=== PATIENT | female | born 1985 | race Caucasian/White ===

== ENCOUNTER 2017-02-18 08:48 | Emergency (ER) | payer MEDICAID ==
[~2017-02-18] VITALS: Ht 157.5 cm; Wt 50.0 kg
[2017-02-18 08:53] VITALS: BP 153/77; PULSE 75; RESP 12; TEMP 98.7; O2SAT 96
[2017-02-18] MEDS ORDERED: SODIUM CHLOR 0.9% 1000 ML INJ 1,000 ML IV SCH (09:26)
[2017-02-18] MEDS ORDERED: diphenhydrAMINE HCL 50 MG/ML VIAL IV PUSH ONE (09:30)
[2017-02-18] MEDS ORDERED: KETOROLAC TROMETHAMINE 30 MG/ML (IVP) VIAL IVP ONE (09:30)
[2017-02-18] MEDS ORDERED: FAMOTIDINE 20 MG/2 ML VIAL IV PUSH ONE (09:30)
[2017-02-18] MEDS ORDERED: SODIUM CHLORIDE 0.9% FLUSH 10 ML FLUSH IV FLUSH PRN (09:30)
[2017-02-18] MEDS ORDERED: METOCLOPRAMIDE HCL 10 MG/2 ML VIAL IV PUSH ONE (09:30)
--- NOTE | 2017-02-18 09:34 | PD ---
HPI Chief Complaint: GI Complaint Time Seen by Provider: 09:18 Travel History International Travel<30 days: No Contact w/Intl Traveler<30days: No Traveled to known affect area: No History of Present Illness HPI 31-year-old female complains of abdominal pain with nausea vomiting. Patient has history of recurrent abdominal pain with nausea vomiting for years. Patient has been seen and admitted multiple times in the past at [facility] in [facility]. Patient states that she has x-ray, CT scan of abdomen and pelvis, endoscopy by GI specialist done at [facility]. Patient states that she was told that she had possible Crohn's disease, irritable bowel syndrome, diverticulitis. Patient states that she was given Ativan and Phenergan in the past. Patient states she has symptoms intermittently for years. Patient states that she started having abdominal pain with nausea vomiting again this morning. Patient denies any headache. Patient denies any chest pain or shortness of breath. Patient states the abdominal pain cramping pain diffuse pain over the abdomen. Patient denies any pain radiation. Patient denied dysuria or frequency. Patient is on her menstruation period now. 11:10 AM. Medical records obtained from [facility] in [facility] she'll patient was admitted on January 22 and discharged January 24 for intractable abdominal pain nausea vomiting. History of the admission also states the patient had endoscopy in July of [facility] which showed esophagitis. Patient had colonoscopy in September 2015 showed mild diverticulosis and hemorrhoids. has history of asthma, anxiety, diverticulosis, cyclic vomiting syndrome. Medical records did not have any report the patient had Crohn's disease or diverticulitis on endoscopy. Patient states that she has been smoking pot at home also. PFSH Past Medical History Anxiety: Yes Medical other: Yes (CROHNS) Respiratory: Yes (PE 2012) Tetanus Vaccination: Unknown Influenza Vaccination: Yes ?: Not Tubal Ligation: Yes Past Surgical History Cholecystectomy: Yes Tonsillectomy: Yes Social History Alcohol Use: No Tobacco Use: Yes Substance Use: Yes (THC DAILY) Allergies-Medications (Allergen,Severity, Reaction): Coded Allergies: ondansetron (Verified Allergy, Intermediate, Hives, 02/18/17) vancomycin (Verified Allergy, Intermediate, Rash, 02/18/17) PT STATES SHE TURNS RED AND SWELLS Reported Meds & Prescriptions Reported Meds & Active Scripts Active Zantac (Ranitidine HCl) 300 Mg Tab 300 Mg PO DAILY Phenergan (Promethazine HCl) 25 Mg Tablet 25 Mg PO Q6H PRN Reglan (Metoclopramide HCl) 10 Mg Tab 10 Mg PO TIDAC Review of Systems General / Constitutional: No: Fever Eyes: No: Visual changes HENT: No: Headaches Cardiovascular: No: Chest Pain or Discomfort Respiratory: No: Shortness of Breath Gastrointestinal: Positive: Nausea, Vomiting, Abdominal Pain Genitourinary: No: Dysuria Musculoskeletal: No: Pain Skin: No Rash Neurologic: No: Weakness Psychiatric: No: Depression Endocrine: No: Polydipsia Hematologic/Lymphatic: No: Easy Bruising Physical Exam Narrative GENERAL: Well-nourished, well-developed patient. SKIN: Focused skin assessment warm/dry. HEAD: Normocephalic. EYES: No scleral icterus. No injection or drainage. NECK: Supple, trachea midline. No JVD or lymphadenopathy. CARDIOVASCULAR: Regular rate and rhythm without murmurs, gallops, or rubs. RESPIRATORY: Breath sounds equal bilaterally. No accessory muscle use. GASTROINTESTINAL: Abdomen soft, nondistended. Patient has moderate diffuse tenderness over the abdomen. No rebound tenderness. No mass. MUSCULOSKELETAL: No cyanosis, or edema. BACK: Nontender without obvious deformity. No CVA tenderness. Data Data Last Documented VS Vital Signs Date Time Temp Pulse Resp B/P (MAP) Pulse Ox O2 Delivery O2 Flow Rate FiO2 02/18/17 08:53 98.7 75 12 153/77 (102) 96 Orders Orders Complete Blood Count With Diff (02/18/17 09:26) Comprehensive Metabolic Panel (02/18/17 09:26) Lipase (02/18/17:26) Prothrombin Time / Inr (Pt) (02/18/17:26) Act Partial Throm Time (Ptt) (02/18/17:26) Urinalysis - C+S If Indicated (02/18/17 09:26) Ct Abd/Pel W/O Iv Contrast (02/18/17 09:26) Iv Access Insert/Monitor (02/18/17:26) Ecg Monitoring (02/18/17:) Oximetry (02/18/17 09:26) Sodium Chlor 0.9% 1000 Ml Inj (Ns 1000 M (02/18/17 09:26) Sodium Chloride 0.9% Flush (Ns Flush) (02/18/17 09:30) Famotidine Inj (Pepcid Inj) (02/18/17 09:30) Ketorolac Inj (Toradol Inj) (02/18/17 09:30) Ed Urine Pregnancytest Poc (02/18/17 09:26) Metoclopramide Inj (Reglan Inj) (02/18/17 09:30) Diphenhydramine Inj (Benadryl Inj) (02/18/17 09:30) Urine Culture (02/18/17 09:20) Labs Laboratory Tests Test 02/18/17 09:20 02/18/17 09:30 Urine Color YELLOW Urine Turbidity HAZY Urine pH 5.0 Urine Specific [place] 1.021 Urine Protein TRACE mg/dL Urine Glucose (UA) NEG mg/dL Urine Ketones 40 mg/dL Urine Occult Blood LARGE Urine Nitrite NEG Urine Bilirubin NEG Urine Urobilinogen LESS THAN 2.0 MG/DL Urine Leukocyte Esterase NEG Urine RBC 46 /hpf Urine WBC 6 /hpf Urine Squamous Epithelial Cells 2 /hpf Urine Bacteria MOD /hpf Urine Mucus FEW /lpf Microscopic Urinalysis Comment CULTURE INDICATED White Blood Count 12.5 TH/MM3 Red Blood Count 4.63 MIL/MM3 Hemoglobin 15.3 GM/DL Hematocrit 45.1 % Mean Corpuscular Volume 97.4 FL Mean Corpuscular Hemoglobin 33.0 PG Mean Corpuscular Hemoglobin Concent 33.9 % Red Cell Distribution Width 13.7 % Platelet Count 275 TH/MM3 Mean Platelet Volume 7.9 FL Neutrophils (%) (Auto) 79.4 % Lymphocytes (%) (Auto) 15.2 % Monocytes (%) (Auto) 3.8 % Eosinophils (%) (Auto) 1.2 % Basophils (%) (Auto) 0.4 % Neutrophils # (Auto) 10.0 TH/MM3 Lymphocytes # (Auto) 1.9 TH/MM3 Monocytes # (Auto) 0.5 TH/MM3 Eosinophils # (Auto) 0.1 TH/MM3 Basophils # (Auto) 0.1 TH/MM3 CBC Comment DIFF FINAL Differential Comment Prothrombin Time 10.9 SEC Prothromb Time International Ratio 1.0 RATIO Activated Partial Thromboplast Time 20.7 SEC Blood Urea Nitrogen 15 MG/DL Creatinine 0.62 MG/DL Random Glucose 152 MG/DL Total Protein 7.5 GM/DL Albumin 4.1 GM/DL Calcium Level 8.8 MG/DL Alkaline Phosphatase 51 U/L Aspartate Amino Transf (AST/SGOT) 13 U/L Alanine Aminotransferase (ALT/SGPT) 25 U/L Total Bilirubin 0.2 MG/DL Sodium Level 138 MEQ/L Potassium Level 3.9 MEQ/L Chloride Level 109 MEQ/L Carbon Dioxide Level 22.2 MEQ/L Anion Gap 7 MEQ/L Estimat Glomerular Filtration Rate 111 ML/MIN Lipase 180 U/L [facility] Medical Decision Making Medical Screen Exam Complete: Yes Emergency Medical Condition: Yes Interpretation(s) 10:23 AM. CBC WBC 12.5. 79 neutrophil. CMP within normal limit. UA positive for RBC, few WBC and bacteria. 11:[address] scan abdomen and pelvis negative for acute pathology. Differential Diagnosis Differential diagnosis including gastritis, PUD, pancreatitis, cholecystitis, colitis, UTI, pyelonephritis, nephrolithiasis. Narrative Course 31-year-old female with recurrent abdominal pain nausea vomiting. Normal saline solution 1 L IV bolus. Reglan 10 mg IV. Benadryl 25 mg IV. Toradol 30 mg IV. I discussed the results of blood tests and CT scan abdomen and pelvis and report from [facility] with the patient. Advised patient to follow- up local physician and GI specialist. Advised patient stop smoking pot. Diagnosis Primary Impression: Recurrent abdominal pain Additional Impression: Nausea and vomiting Qualified Codes: G43.A0 - Cyclical vomiting, not intractable Patient Instructions: General Instructions Additional Instructions: Take Reglan, Phenergan, Zantac as needed. Follow-up with GI specialist. Return if persistent problem or worse. Advised patient to stop smoking pot. Med/Other Pt SpecificInfo: Prescription(s) given Scripts Ranitidine (Zantac) 300 Mg Tab 300 MG PO DAILY, #30 TAB 0 Refills Prov: Robby Benz MD 02/18/17 Promethazine (Phenergan) 25 Mg Tablet 25 MG PO Q6H Y for NAUSEA OR VOMITING, #20 TAB 0 Refills Prov: Robby Benz MD 02/18/17 Metoclopramide (Reglan) 10 Mg Tab 10 MG PO TIDAC, #30 TAB 0 Refills Prov: Robby Benz MD 02/18/17 Disposition: 01 DISCHARGE HOME Condition: Stable Robby Benz MD Feb 18, 2017 09:34
[2017-02-18 09:58] LABS: BASOPHIL # 0.1 TH/MM3 (0-0.2); BASOPHIL % 0.4 % (0.0-2.0); EOSINOPHIL # 0.1 TH/MM3 (0-0.4); EOSINOPHIL % 1.2 % (0.0-4.0); HEMATOCRIT 45.1 % (35.0-46.0); HEMO FLAGS DIFF FINAL; LYMPH % 15.2 % (9.0-44.0); LYMPHOCYTE # 1.9 TH/MM3 (1.0-4.8); MEAN CELL VOLUME 97.4 FL (80.0-100.0); MEAN CORPUSCULAR HGB CONC 33.9 % (32.0-36.0); MONO % 3.8 % (0.0-8.0); NEUT % 79.4 % (16.0-70.0); PLATELET COUNT 275 TH/MM3 (150-450); RED BLOOD COUNT 4.63 MIL/MM3 (4.00-5.30); RED CELL DISTRIBUTION WIDTH 13.7 % (11.6-17.2); WHITE BLOOD COUNT 12.5 TH/MM3 (4.0-11.0)
[2017-02-18 10:13] LABS: APTT (PATIENT) 20.7 SEC (24.3-30.1); PROTHROMBIN TIME - PATIENT 10.9 SEC (9.8-11.6)
[2017-02-18 10:17] LABS: ALT (GPT) 25 U/L (10-53); ANION GAP 7 MEQ/L (5-15); AST (GOT) 13 U/L (15-37); BICARBONATE 22.2 MEQ/L (21.0-32.0); BLOOD UREA NITROGEN 15 MG/DL (7-18); CHLORIDE 109 MEQ/L (98-107); GLOMERULAR FILTRATION RATE 111 ML/MIN (>89); POTASSIUM 3.9 MEQ/L (3.5-5.1); SODIUM (NA) 138 MEQ/L (136-145)
[2017-02-18 10:17] LABS: BACTERIA, URINE MOD /hpf; BLOOD, URINE LARGE (NEG); COMMENT (UR) CULTURE INDICATED; CULTURE IF INDICATED CULTURE INDICATED; GLUCOSE,URINE NEG (NEG); KETONE, URINE 40 mg/dL (NEG); MUCUS URINE FEW /lpf (OCC); NITRITE,URINE NEG (NEG); SQUAMOUS EPITHELIAL CELL URINE 2 /hpf (0-5); URINE COLOR YELLOW (YELLW/STRAW)
[2017-02-18 10:19] LABS: ALKALINE PHOSPHATASE 51 U/L (45-117); TOTAL BILIRUBIN ADULT 0.2 MG/DL (0.2-1.0)
--- NOTE | 2017-02-18 11:33 | RADRPT ---
EXAM DATE/TIME: 02/18/2017 10:59 [place] COMPARISON: No previous studies available for comparison. INDICATIONS : Nausea and vomiting and diffuse abdomen pain ORAL CONTRAST: No oral contrast ingested. RADIATION DOSE: 4.54 CTDIvol (mGy) MEDICAL HISTORY : None SURGICAL HISTORY : Cholecystectomy. Tubal ligation. ENCOUNTER: Initial ACUITY: 1 week PAIN SCALE: 5/10 LOCATION: diffuse abdomen TECHNIQUE: Volumetric scanning of the abdomen and pelvis was performed. Using automated exposure control and ad justment of the mA and/or kV according to patient size, radiation dose was kept as low as reasonably achievable to obtain optimal diagnostic quality images. DICOM format image data is available electro nically for review and comparison. FINDINGS: LOWER LUNGS: The visualized lower lungs are clear. LIVER: Homogeneous density without lesion. There is no dilation of the biliary tree. Gallbladder is surgica lly absent. SPLEEN: Normal size without lesion. PANCREAS: Within normal limits. KIDNEYS: Normal in size and shape. There is no mass, stone, or hydronephrosis. ADRENAL GLANDS: Within normal limits. VASCULAR: There is no aortic aneurysm. BOWEL/MESENTERY: The stomach, small bowel, and colon demonstrate no acute abnormality. Appendix is not directly visua lized. However, there is no significant pericecal inflammatory change or adenopathy. There is no free intraperitoneal air or fluid. ABDOMINAL WALL: Within normal limits. RETROPERITONEUM: There is no lymphadenopathy. BLADDER: No wall thickening or mass. REPRODUCTIVE: Bilateral tubal ligation clips. Uterus and adnexa are otherwise unremarkable for age. INGUINAL: There is no lymphadenopathy or hernia. MUSCULOSKELETAL: Within normal limits for patient age. 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 CONCLUSION: 1. No acute CT abnormality to explain patient's abdominal pain. 2. Appendix is not directly visualized. However, there is no significant secondary CT evidence for ap pendicitis at this time. Bryant Gamez MD on February 18, 2017 at 11:25 Board Certified Radiologist. This report was verified electronically.
[2017-02-18] MEDS ORDERED: PROM25TA10 PO (11:46)
[2017-02-18] MEDS ORDERED: REGL10TA5 PO (11:46)
[2017-02-18] MEDS ORDERED: ZANT300T PO (11:46)
[2017-02-18 12:10] VITALS: PULSE 78; RESP 16; O2SAT 99
== END 2017-02-18 12:09 | disposition home or self-care (01) ==
LOC: NEPD 08:48
DX: R11.2 Nausea with vomiting, unspecified (principal); R10.9 Unspecified abdominal pain; B96.89 Other specified bacterial agents as the cause of diseases classified elsewhere; J45.909 Unspecified asthma, uncomplicated; F41.9 Anxiety disorder, unspecified; K57.90 Diverticulosis of intestine, part unspecified, without perforation or abscess without bleeding; K50.90 Crohn's disease, unspecified, without complications; Z86.711 Personal history of pulmonary embolism
CPT/HCPCS: 74176; 80053; 81001; 83690; 84703; 85025; 85610; 85730; 87086; 96361; 96374; 96375; 99285; J1200; J1885; J2765; J7030